=== PATIENT | female | born 1975 | race Caucasian/White ===

== ENCOUNTER 2016-09-21 14:28 | Emergency (ER) | payer OTHER ==
[~2016-09-21 14:28] MED LIST: LEVAQUIN750 MG PO; MEDROL 4MG DOSEP4 MG PO; MUCINEX 600MG600 MG PO; NORCO 5-325 TA1 EACH PO; VENTOLIN HFA IN18 GM INH
[2016-09-21 15:25] LABS: EOSINOPHIL 6.4 % (0-5); HCT 45.4 % (37.0-47.0); HGB 15.3 g/dl (12.5-16.0); LYMPHOCYTE 34.3 % (15-48); MCH 29.2 pg (25.0-31.0); MCHC 33.7 g/dL (32.0-36.0); MCV 86.6 fL (78.0-100.0); MPV 10.4 fL (6.0-9.5); NEUTROPHIL 50.3 % (41-80); PLT 320 K/uL (150-400); RBC 5.24 M/uL (4.20-5.40); RDW 13.2 % (11.5-14.0); WBC 6.9 K/uL (4.0-10.5)
[2016-09-21 15:30] LABS: INR 1.07 (0.9-1.2); PROTHROMBIN TIME 13.5 SECONDS (11.7-14.0); PTT 27.8 SECONDS (23.2-31.4)
[2016-09-21 15:38] LABS: CKMB 1.67 ng/mL (0.97-4.94); TROPONIN T < 0.010 ng/mL
[2016-09-21 15:40] LABS: ALBUMIN 4.5 g/dL (3.5-5.0); BILIRUBIN - TOTAL 0.3 mg/dL (0.1-1.0); CREATININE 0.9 mg/dL (0.5-1.0); GLOBULIN (CALCULATION) 2.9 g/dL (2.2-4.2); TOTAL PROTEIN 7.4 g/dL (6.4-8.3)
[2016-09-21 16:14] LABS: BILIRUBIN NEGATIVE (NEGATIVE); BLOOD 2+ Ery/uL (NEGATIVE); CLARITY CLEAR (CLEAR); COLOR YELLOW (YELLOW); GLUCOSE (U) NORMAL (NORMAL); KETONE (U) NEGATIVE (NEGATIVE); LEUKOCYTES NEGATIVE Leu/uL (NEGATIVE); NITRITE NEGATIVE (NEGATIVE); PROTEIN NEGATIVE (NEGATIVE); SPECIFIC GRAVITY 1.025 (1.001-1.030); UROBILINOGEN 0.2 mg/dL (0.2-1.0); pH 5.5 (5.0-9.0)
[2016-09-21 16:18] LABS: BACTERIA 1+
== END 2016-09-21 18:25 | disposition home or self-care (01) ==
LOC: FER 14:28
PROVIDERS: Emergency Medicine
DX: G44.209 Tension-type headache, unspecified, not intractable (principal); F41.9 Anxiety disorder, unspecified; R07.89 Other chest pain; F17.210 Nicotine dependence, cigarettes, uncomplicated; Z87.09 Personal history of other diseases of the respiratory system
CPT/HCPCS: 36415; 70450; 71020; 80053; 81001; 82550; 82553; 84484; 85025; 85610; 85730; 93005; J1885

== ENCOUNTER 2021-07-31 13:09 | Emergency (ER) | payer OTHER ==
[~2021-07-31 13:09] MED LIST changes: +ASPIRIN EC81 MG PO; +KETOROLAC TROME10 MG PO; +MACROBID100 MG PO
[2021-07-31 14:37] LABS: BILIRUBIN NEGATIVE (NEGATIVE); BLOOD 3+ Ery/uL (NEGATIVE); CLARITY CLEAR (CLEAR); COLOR YELLOW (YELLOW); GLUCOSE (U) NORMAL (NORMAL); LEUKOCYTES NEGATIVE Leu/uL (NEGATIVE); NITRITE NEGATIVE (NEGATIVE); PROTEIN NEGATIVE (NEGATIVE); UROBILINOGEN 0.2 mg/dL (0.2-1.0)
[2021-07-31 14:42] LABS: AMPHETAMINES NEGATIVE (NEGATIVE); BARBITURATES NEGATIVE (NEGATIVE); ECSTASY (MDMA) NEGATIVE (NEGATIVE); MARIJUANA (THC) NEGATIVE (NEGATIVE); METHADONE NEGATIVE (NEGATIVE); OPIATES NEGATIVE (NEGATIVE); OXYCODONE NEGATIVE (NEGATIVE)
[2021-07-31 14:53] LABS: EOSINOPHIL 0.8 % (0-5); HGB 14.2 g/dl (12.5-16.0); LYMPHOCYTE 33.2 % (15-48); MCH 29.3 pg (25.0-31.0); MCV 88.7 fL (78.0-100.0); MPV 9.4 fL (6.0-9.5); NEUTROPHIL 57.3 % (41-80); NRBC 0; PLT 263 K/uL (150-400); RBC 4.85 M/uL (4.20-5.40); RDW 13.7 % (11.5-14.0)
[2021-07-31 15:04] LABS: BACTERIA TRACE; URINARY WBC RARE
[2021-07-31 15:27] LABS: ALBUMIN 4.2 g/dL (3.4-5.0); BILIRUBIN - TOTAL 0.3 mg/dL (0.2-1.0); BUN/CREAT RATIO (CALC) 27.4 RATIO; CREATININE 0.62 mg/dL (0.51-0.95); GLOBULIN (CALCULATION) 3.2 g/dL; POTASSIUM 3.6 mmol/L (3.5-5.1); TOTAL PROTEIN 7.4 g/dL (6.4-8.2)
== END 2021-07-31 16:30 | disposition home or self-care (01) ==
LOC: FER 13:09
PROVIDERS: Physician Assistant
DX: I10 Essential (primary) hypertension (principal); R20.2 Paresthesia of skin; F17.200 Nicotine dependence, unspecified, uncomplicated; Z88.5 Allergy status to narcotic agent
CPT/HCPCS: 36415; 70450; 71045; 80053; 80305; 81001; 83880; 84484; 85025; 93005

== ENCOUNTER 2022-01-22 06:32 | Emergency (ER) | payer OTHER ==
[2022-01-22 07:17] LABS: BASOPHIL 1.3 % (0-2); EOSINOPHIL 2.6 % (0-5); HCT 42.7 % (37.0-47.0); MCH 29.4 pg (25.0-31.0); MCHC 32.8 g/dL (32.0-36.0); MCV 89.7 fL (78.0-100.0); MONOCYTE 8.1 % (0-12); MPV 9.8 fL (6.0-9.5); NEUTROPHIL 51.5 % (41-80); NRBC 0; PLT 322 K/uL (150-400); RBC 4.76 M/uL (4.20-5.40); RDW 13.9 % (11.5-14.0); WBC 5.4 K/uL (4.0-10.5)
[2022-01-22 08:20] LABS: CORONAVIRUS 2019 SARS-COV-2 POSITIVE (NEGATIVE)
[2022-01-22 08:21] LABS: INFLUENZA A NAA NEGATIVE (NEGATIVE)
[2022-01-22 08:43] LABS: ALBUMIN 3.9 g/dL (3.4-5.0); BILIRUBIN - TOTAL 0.2 mg/dL (0.2-1.0); BUN/CREAT RATIO (CALC) 24.7 RATIO; CREATININE 0.77 mg/dL (0.51-0.95); FT4 (FREE T4) 0.8 ng/dL (0.76-1.46); GLOBULIN (CALCULATION) 3.2 g/dL; MAGNESIUM 1.8 mg/dL (1.8-2.4); POTASSIUM 4.2 mmol/L (3.5-5.1); TOTAL PROTEIN 7.1 g/dL (6.4-8.2)
[2022-01-22 08:59] LABS: BILIRUBIN NEGATIVE (NEGATIVE); BLOOD NEGATIVE Ery/uL (NEGATIVE); CLARITY CLEAR (CLEAR); COLOR YELLOW (YELLOW); GLUCOSE (U) NORMAL (NORMAL); LEUKOCYTES NEGATIVE Leu/uL (NEGATIVE); NITRITE NEGATIVE (NEGATIVE); PROTEIN NEGATIVE (NEGATIVE); SPECIFIC GRAVITY 1.025 (1.001-1.030); UROBILINOGEN 0.2 mg/dL (0.2-1.0)
[2022-01-22] MEDS ORDERED: HCTZ25 MG PO (09:56)
[2022-01-22] MEDS ORDERED: FIORICET1 EACH PO (10:04)
== END 2022-01-22 10:24 | disposition home or self-care (01) ==
LOC: FER 06:32
PROVIDERS: Emergency Medicine; Internal Medicine
DX: I10 Essential (primary) hypertension (principal); U07.1 COVID-19; F17.200 Nicotine dependence, unspecified, uncomplicated
CPT/HCPCS: 36415; 80053; 81003; 83735; 84145; 84439; 84443; 84484; 85025; 93005; J1170; J2405; J2765; U0002